=== PATIENT | female | born 1940 ===

== ENCOUNTER 2019-05-08 11:21 | Emergency (ER) | payer MEDICARE ==
[~2019-05-08 11:21] MED LIST: LIS10 PO; PER PO; SIMV5TAB56 PO
--- NOTE | 2019-05-08 11:46 | ER Report ---
History and Physical Time Seen By MD: 11:28 Hx. of Stated Complaint: PATIENT REPORTS DIZZINESS AND TROUBLE WALKING SINCE A SHOULDER SURGERY IN JANUARY. HPI/ROS CHIEF COMPLAINT: Hx of falls, dizziness HISTORY OF PRESENT ILLNESS: Patient is a 78 yo F c/o stumbling and falls that have been occurring since January. She has had several falls, the most recent was a day ago, she did not fall to the ground but slammed into a door that caught her fall and has left shoulder pain. She states she has felt unsteady and off balance since she had right rotator cuff surgery in January. Had right knee arthroplasty in September and just hasn't been the same with her balance since. Denies nausea, lightheadedness, vision changes, cardiac or pulmonary history, syncope or headache. Hasn't tried anything to help her condition. States she e ats 3 meals a day with 5-7 glasses of water per day. REVIEW OF SYSTEMS: General: dizziness, no headache Respiratory: No cough, no dyspnea. Cardiovascular: No chest pain, no palpitations. Gastrointestinal: No vomiting, no abdominal pain. Musculoskeletal: No back pain, Neuro: loss of balance, no muscle weakness, no syncope Allergies: Coded Allergies: No Known Drug Allergies (Verified Allergy, Mild, 05/26/08) Home Meds Reported Medications Simvastatin (Zocor) 5 Mg Tablet, 5 MG PO QHS 05/26/08 Lisinopril (Prinivil) 10 Mg Tab, 10 MG PO QDAY, #20 0 Refills 05/26/08 Past Medical/Surgical History HTN, Hypercholesterolemia, arthritis, glasses, R wrist sx, R shoulder sx, right knee arthroplasty, left knee surgery Reviewed Nurses Notes: Yes Hx Smoking: No Hx Substance Use Disorder: No Hx Alcohol Use: No Constitutional Vital Sign - Last 24 Hours 05/08/19 05/08/19 05/08/19 05/08/19 11:24 11:27 11:30 11:41 Temp 97.7 Pulse 71 73 Resp 16 13 B/P (MAP) 126/94 (105) 126/94 133/92 (106) Pulse Ox 93 93 O2 Delivery Room Air 05/08/19 05/08/19 05/08/19 05/08/19 12:00 12:01 12:21 12:41 Pulse 79 72 65 Resp 21 B/P (MAP) 124/114 (117) Pulse Ox 93 82 05/08/19 05/08/19 13:01 13:40 Pulse 67 65 B/P (MAP) 131/72 (91) Pulse Ox 92 92 Physical Exam General Appearance: The patient is alert, has no immediate need for airway protection and no current signs of toxicity. Eyes: Pupils equal and round no injection, EOMI Respiratory: Chest is non tender, lungs are clear to auscultation. Cardiac: regular rate and rhythm, no murmurs Gastrointestinal: Abdomen is soft and non tender, no masses, bowel sounds normal. Musculoskeletal: Neck: Neck is supple and non tender. Extremities have full range of motion, tenderness over left proximal humerus with echymosis Skin: No rashes or lesions. Neuro: CN II-XII grossly intact, DTR's +2 DIFFERENTIAL DIAGNOSIS: After history and physical exam differential diagnosis was considered for cerebellar atrophy, stroke, muscle weakness secondary to surgical satiety Medical Decision Making Data Points Result Diagram: 05/08/19 1130 05/08/19 1130 Laboratory Hematology Test 05/08/19 11:30 White Blood Count 6.0 k/uL (4.5-11.0) Red Blood Count 4.62 M/uL (4.17-5.56) Hemoglobin 13.9 g/dL (12.0-16.0) Hematocrit 41.1 % (34.0-47.0) Mean Corpuscular Volume 88.9 fL (80.0-96.0) Mean Corpuscular Hemoglobin 30.1 pg (26.0-33.0) Mean Corpuscular Hemoglobin Concent 33.8 g/dL (32.0-36.0) Red Cell Distribution Width 14.6 % (11.5-14.5) H Platelet Count 276 K/uL (150-450) Mean Platelet Volume 8.2 fL (7.2-11.1) Neutrophils (%) (Auto) 60.1 % (39.4-72.5) Lymphocytes (%) (Auto) 25.4 % (17.6-49.6) Monocytes (%) (Auto) 11.2 % (4.1-12.4) Eosinophils (%) (Auto) 2.3 % (0.4-6.7) Basophils (%) (Auto) 1.0 % (0.3-1.4) Nucleated RBC Relative Count (auto) 0.0 /100WBC Neutrophils # (Auto) 3.6 K/uL (2.0-7.4) Lymphocytes # (Auto) 1.5 K/uL (1.3-3.6) Monocytes # (Auto) 0.7 K/uL (0.3-1.0) Eosinophils # (Auto) 0.1 K/uL (0.0-0.5) Basophils # (Auto) 0.1 K/uL (0.0-0.1) Nucleated RBC Absolute Count (auto) 0.00 K/uL Chemistry Test 05/08/19 11:30 Sodium Level 137 mmol/L (137-145) Potassium Level 3.7 mmol/L (3.5-5.0) Chloride Level 104 mmol/L (98-107) Carbon Dioxide Level 24 mmol/L (22-31) Blood Urea Nitrogen 17 mg/dl (7-18) Creatinine 0.80 mg/dl (0.52-1.04) Glomerular Filtration Rate Calc > 60.0 Random Glucose 94 mg/dl (75-110) Calcium Level 9.7 mg/dl (8.4-10.2) Total Bilirubin 0.5 mg/dl (0.2-1.3) Aspartate Amino Transf (AST/SGOT) 29 U/L (0-35) Alanine Aminotransferase (ALT/SGPT) 25 U/L (0-56) Alkaline Phosphatase 95 U/L (0-126) Total Protein 7.4 g/dl (6.3-8.2) Albumin 4.2 g/dl (3.5-5.0) EKG/Imaging Imaging Exam type: KUB SINGLE VIEW ABDOMEN History: Constipation Comparison: None. Findings: There is a moderate amount of fecal material seen throughout colon consistent with the clinical concern of constipation. Remainder the bowel gas pattern is nonspecific. There are extensive spondylotic changes throughout the lumbar spin e. There are moderate degenerative changes of the right hip No gross evidence of organomegaly. IMPRESSION: 1. Moderate amount of fecal material seen throughout colon consistent with the clinical concern of constipation Report Dictated By: Renetta Vazquez MD at 05/08/2019 12:44 PM Report E-Signed By: Renetta Vazquez MD at 05/08/2019 12:45 PM Exam type: CHEST PA LAT History: dizziness Comparison: None. Findings: The lungs are free of acute effusions, infiltrates or edema. Cardiac silhouette is normal in size. There is moderate ectasia the thoracic aorta. There are postsurgical changes of the right shoulder. There are spondylotic changes of the thoracolumbar spine IMPRESSION: 1. No acute cardiac pulmonary process is seen Report Dictated By: Renetta Vazquez MD at 05/08/2019 12:45 PM Report E-Signed By: Renetta Vazquez MD at 05/08/2019 12:46 PM Study: CT scan of the brain without intravenous contrast. Indication: Dizziness Comparison study:None Technique: Multiple axial images were obtained through the brain without the use of intravenous contrast. One of the following dose optimization techniques was utilized in the performance of this exam: Automated exposure control; adjustment of the mA and/or kV according to the patient's size; or use of an iterative reconstruction technique. Specific details can be referenced in the facility's radiology CT exam operational policy. The examination demonstrates no evidence of acute intracranial hemorrhage. There is no evidence of extra-axial collection or hydrocephalus. There is no abnormal density identified within the brain parenchyma. There is no evidence of disruption of the peripheral ruiz-white junction. The bony structures are unremarkable. IMPRESSION:Unremarkable CT scan of the brain without contrast. Report Dictated By: Maulik Fisher at 05/08/2019 12:59 PM Report E-Signed By: Maulik Fisher at 05/08/2019 1:01 PM ED Course/Re-evaluation ED Course Patient is a 78 year old female who presented to the ED complaining of an unsteady gait and frequent falls. Most recent was yesterday when she fell and was caught by a door that caused a large bruise to her left shoulder. Has been having frequent falls since January following consecutive surgeries. Had a right knee arthroplasty in September and right shoulder rotator cuff surgery in January. Differential diagnoses were considered. Patients physical exam was benign including cardiac, pulmonary, neurological and gait. Work up was done including CBC, CMP and a CT of her head to rule out stroke. All findings were benign with no acute findings. Patient was instructed to follow up with her PCP and given an Rx for PT to help with balance and gait. Patient understood and agreed with her diagnosis. Discharged. Decision to Disposition Date: May 08, 2019 Decision to Disposition Time: 13:13 Depart Departure Latest Vital Signs Vital Signs Date Time Temp Pulse Resp B/P (MAP) Pulse Ox O2 Delivery O2 Flow Rate FiO2 05/08/19 13:40 65 131/72 (91) 92 05/08/19 12:01 21 05/08/19 11:27 97.7 Room Air Impression: Primary Impression: Unsteady gait Additional Impression: Constipation Condition: Improved Disposition: HOME OR SELF-CARE Patient Instructions: Constipation (ED), GENERAL ER DISCHARGE INSTRUCTIONS Additional Instructions: Follow up with PCP about unsteady gait. Rx given for Constipation. Return to ED in event of a fall with head injury or loss of consciousness. Problem Qualifiers Additional Impression: Constipation Constipation type: unspecified constipation type Qualified Codes: K59.00 - Constipation, unspecified ELEANOR WANG May 08, 2019 11:46
[2019-05-08 12:19] LABS: PLATELET COUNT, AUTOMATED 276 K/uL (150-450)
--- NOTE | 2019-05-08 12:22 | EKG ---
FAC[place]: [facility] [place]IENT NAME: ANDREA CHEEMA : [id number] MR: [id number] V: [id number] EXAM DATE: ORDERING PHYSICIAN: ELEANOR WANG TECHNOLOGIST: CHON Almaguer Reason : Neuro Blood Pressure : / mmHG Vent. Rate : 067 BPM Atrial Rate : 067 BPM P-R Int : 186 ms QRS Dur : 084 ms QT Int : 414 ms P-R-T Axes : 055 020 054 degrees QTc Int : 437 ms Normal sinus rhythm Normal ECG No previous ECGs available Confirmed by ZOIE BUTLER ([id number]) on 05/08/2019 1:21:42 PM Referred By: Confirmed By:ZOIE BUTLER
--- NOTE | 2019-05-08 12:54 | RADIOLOGY IMAGING REPORT ---
FACILITY: [facility] PATIENT NAME: Gale Henson : 1940 MR: [id number] V: [id number] EXAM DATE: ORDERING PHYSICIAN: ELEANOR WANG TECHNOLOGIST: Location: [facility] Patient: Gale Henson : 1940 Visit/Account:[id number] Date of Sevice: 05/08/2019 Exam type: CHEST PA LAT History: dizziness Comparison: None. Findings: The lungs are free of acute effusions, infiltrates or edema. Cardiac silhouette is normal in size. There is moderate ectasia the thoracic aorta. There are postsurgical changes of the right shoulder. There are spondylotic changes of the thoracolumbar spine IMPRESSION: 1. No acute cardiac pulmonary process is seen Report Dictated By: Renetta Vazquez MD at 05/08/2019 12:45 PM Report E-Signed By: Renetta Vazquez MD at 05/08/2019 12:46 PM WSN:[id number]
--- NOTE | 2019-05-08 12:55 | RADIOLOGY IMAGING REPORT ---
FACILITY: [facility] PATIENT NAME: Gale Henson : 1940 MR: [id number] V: [id number] EXAM DATE: ORDERING PHYSICIAN: ELEANOR WANG TECHNOLOGIST: Location: [facility] Patient: Gale Henson : 1940 Visit/Account:[id number] Date of Sevice: 05/08/2019 Exam type: KUB SINGLE VIEW ABDOMEN History: Constipation Comparison: None. Findings: There is a moderate amount of fecal material seen throughout colon consistent with the clinical connor rn of constipation. Remainder the bowel gas pattern is nonspecific. There are extensive spondylotic changes throughout the lumbar spine. There are moderate degenerative changes of the right hip No gr oss evidence of organomegaly. IMPRESSION: 1. Moderate amount of fecal material seen throughout colon consistent with the clinical concern of c onstipation Report Dictated By: Renetta Vazquez MD at 05/08/2019 12:44 PM Report E-Signed By: Renetta Vazquez MD at 05/08/2019 12:45 PM WSN:[email or web address]
--- NOTE | 2019-05-08 13:08 | RADIOLOGY IMAGING REPORT ---
FACILITY: [facility] PATIENT NAME: Gale Henson : 1940 MR: [id number] V: [id number] EXAM DATE: ORDERING PHYSICIAN: ELEANOR WANG TECHNOLOGIST: Location: [facility] [place] Patient: Gale Henson : 1940 Visit/Account:[id number] Date of Sevice: 05/08/2019 Study: CT scan of the brain without intravenous contrast. Indication: Dizziness Comparison study:None Technique: Multiple axial images were obtained through the brain without the use of intravenous contr ast. One of the following dose optimization techniques was utilized in the performance of this exam: Autom ated exposure control; adjustment of the mA and/or kV according to the patient's size; or use of an i terative reconstruction technique. Specific details can be referenced in the facility's radiology C T exam operational policy. The examination demonstrates no evidence of acute intracranial hemorrhage. There is no evidence of ex tra-axial collection or hydrocephalus. There is no abnormal density identified within the brain parenchyma. There is no evidence of disruption of the peripheral ruiz-white junction. The bony structures are unremarkable. IMPRESSION:Unremarkable CT scan of the brain without contrast. Report Dictated By: Maulik Fisher at 05/08/2019 12:59 PM Report E-Signed By: Maulik Fisher at 05/08/2019 1:01 PM WSN:[id number]
[2019-05-08] MEDS ORDERED: MAGNESIUM CITRATE 300 ML BTL PO ONE (13:25)
[2019-05-08 13:40] VITALS: BP 131/72
== END 2019-05-08 13:42 | disposition home or self-care (01) ==
LOC: ER 11:27
DX: R26.81 Unsteadiness on feet (principal); K59.00 Constipation, unspecified
CPT/HCPCS: 70450; 71046; 74018; 85025; 93005; 99284; A9270; 82040; 82247; 82310; 82374; 82435; 82565; 82947; 84075; 84132; 84155; 84295; 84450; 84460; 84520